=== PATIENT | male | born 1995 | race Hispanic/Latino ===

== ENCOUNTER 2024-05-09 17:50 | Emergency (ER) | payer SELFPAY ==
[~2024-05-09] VITALS: Ht 167.6 cm; Wt 106.6 kg
--- NOTE | 2024-05-09 18:14 | EKG ---
[facility] Test Date: 2024-05-09 Test Time: 18:12:15 Pat Name: KUN GONZALEZ Department: [facility] Room: Gender: M Operations Specialists: [id number] : 1995 Requested By: SUHAIL CARROLL Order Number: [id number] Reading MD: Liya Gonzales Measurements Intervals [place] Rate: 105 P: 36 [place]: 173 QRS: 29 QRSD: 102 T: 10 QT: 331 QTc: 438 Interpretive Statements Sinus tachycardia Consider inferior infarct ST elevation suggests acute pericarditis No previous ECG available for comparison Electronically Signed On 05-10-2024 08:20:50 TUBE LASER OPERATOR by Liya Gonzales Please click the below link to view image of tracing.
[2024-05-09 18:22] LABS: APPEARANCE,URINE CLEAR (CLEAR); BASOPHILS # (AUTO) 0.07 K/uL (0.00-0.20); BASOPHILS % (AUTO) 0.6 % (0.0-5.0); BILIRUBIN,URINE NEGATIVE (NEGATIVE); COLOR,URINE YELLOW (YELLOW); EOSINOPHILS % (AUTO) 2.4 % (0.0-8.0); GLUCOSE, URINE (UA) NEGATIVE (NEGATIVE); HEMATOCRIT 41.5 % (42-54); IMMATURE GRANULOCYTE ABSOLUTE 0.16 K/uL (0-1); KETONES,URINE NEGATIVE (NEGATIVE); LEUKOCYTE ESTERASE ,URINE NEGATIVE Leu/uL (NEGATIVE); LYMPHOCYTES # (AUTO) 2.1 K/uL (1.0-4.8); LYMPHOCYTES % (AUTO) 17.2 % (21.0-51.0); MEAN CORPUSCULAR HEMOGLOBIN 31.1 pg (27.0-33.0); MEAN CORPUSCULAR HGB CONC 35.2 g/dL (32.0-36.0); MEAN CORPUSCULAR VOLUME 88.3 fL (79-99); MONOCYTES # (AUTO) 0.8 K/uL (0.1-1.0); MONOCYTES % (AUTO) 6.1 % (3.0-13.0); NEUTROPHILS # (AUTO) 8.9 K/uL (1.8-7.7); NEUTROPHILS % (AUTO) 72.4 % (40.0-77.0); NITRATE,URINE NEGATIVE (NEGATIVE); OCCULT BLOOD,URINE NEGATIVE (NEGATIVE); PH,URINE 5.5 (5.0-8.0); PLATELET COUNT (AUTO) 222 K/uL (130-400); PROTEIN,URINE NEGATIVE (NEGATIVE); RED CELL DISTRIBUTION WIDTH 11.9 % (11.0-15.5); UROBILINOGEN,URINE 0.2 mg/dL (0.2-1.0); WHITE BLOOD COUNT (AUTO) 12.3 K/uL (4.8-10.8)
--- NOTE | 2024-05-09 18:22 | ERN ---
General Chief Complaint: Suicidal Ideation Stated Complaint: SI Time Seen by MD: 17:56 Time Seen by Midlevel: 17:57 Source: patient History of Present Illness Initial Comments 29-year-old male who presents to the ED by EMS due to suicide ideation. Per EMS patient verbalized suicidal ideation and auditory hallucinations telling him to hurt himself, and had a plan of hanging himself. During the interview patient denied any current suicide ideations but states he wants to go to behavioral because he is not feeling himself. Denies any pain or current symptoms. PMHx anxiety, depression, HTN, schizophrenia, ADHD Allergies: Coded Allergies: No Known Allergies (Unverified Allergy, Unknown, 05/09/24) Past Medical History Past Medical History: Anxiety, Depression, Hypertension, Schizophrenia, Other Medical History Other: ADHD Past Surgical History: None ROS Dictation Constitutional: Negative for fever,chills, and weight loss Eyes: Negative for injury, pain,redness, and discharge ENT: Negative for injury,pain or swelling Cardiovascular: Negative for chest pain, palpitations, and edema Respiratory: Negative for shortness of breath, cough, and wheezing, Abdomen/GI: Negative for abdominal pain, nausea, vomiting, diarrhea, and co nstipation Back: Negative for injury and pain : Negative for painful urination, bleeding or discharge MS/Extremity: Negative for injury and deformity Skin: Negative for rash, and discoloration Neuro: Negative for headache, weakness, numbness, tingling, and seizure Psych: Negative for suicide ideation, homicidal ideation, and hallucinations Physical Exam Physical Exam Dictation General: awake, alert, no acute distress Head/Face: Normocephalic, atraumatic Eyes: PERRL, EOMI, normal conjunctiva ENT: oral cavity clear, oral mucosa moist Neck: Trachea midline, supple, no nuchal rigidity Cardiovascular: RRR, normal S1/S2,, no JVD Respiratory: CTAB, no respiratory distress, No rales or wheezes Abdomen: Soft, non-tender, non-distended, no guarding or rebound. Skin: Warm, dry, normal turgor, no rash MS/Extremity: Pulses equal, no cyanosis, neurovascular intact, FROM Neuro: COAx4, GCS 15, normal gait Psych: Normal behavior, mood, and affect normal Results Laboratory and Microbiology Lab and Micro Result Laboratory Tests Test 05/09/24 18:10 White Blood Count 12.3 K/uL (4.8-10.8) H Red Blood Count 4.70 MIL/uL (4.50-6.20) Hemoglobin 14.6 g/dL (14.0-18.0) Hematocrit 41.5 % (42-54) L Mean Corpuscular Volume 88.3 fL (79-99) Mean Corpuscular Hemoglobin 31.1 pg (27.0-33.0) Mean Corpuscular Hemoglobin Concent 35.2 g/dL (32.0-36.0) Red Cell Distribution Width 11.9 % (11.0-15.5) Platelet Count 222 K/uL (130-400) Mean Platelet Volume 10.7 fL (7.5-10.5) H Immature Granulocyte % (Auto) 1.3 % (0-1) H Neutrophils (%) (Auto) 72.4 % (40.0-77.0) Lymphocytes (%) (Auto) 17.2 % (21.0-51.0) L Monocytes (%) (Auto) 6.1 % (3.0-13.0) Eosinophils (%) (Auto) 2.4 % (0.0-8.0) Basophils (%) (Auto) 0.6 % (0.0-5.0) Neutrophils # (Auto) 8.9 K/uL (1.8-7.7) H Lymphocytes # (Auto) 2.1 K/uL (1.0-4.8) Monocytes # (Auto) 0.8 K/uL (0.1-1.0) Eosinophils # (Auto) 0.30 K/uL (0.00-0.70) Basophils # (Auto) 0.07 K/uL (0.00-0.20) Absolute Immature Granulocyte (auto 0.16 K/uL (0-1) Nucleated Red Blood Cells 0.0 % (0.0-0.19) Urine Color YELLOW (YELLOW) Urine Appearance CLEAR (CLEAR) Urine pH 5.5 (5.0-8.0) Urine Specific [place] 1.033 (1.001-1.031) Urine Protein NEGATIVE mg/dL (NEGATIVE) Urine Glucose (UA) NEGATIVE mg/dL (NEGATIVE) Urine Ketones NEGATIVE mg/dL (NEGATIVE) Urine Occult Blood NEGATIVE (NEGATIVE) Urine Nitrate NEGATIVE (NEGATIVE) Urine Bilirubin NEGATIVE mg/dL (NEGATIVE) Urine Urobilinogen 0.2 mg/dL (0.2-1.0) Urine Leukocyte Esterase NEGATIVE Jonathan/uL Urine RBC 0-1 /HPF (0-1) Urine WBC 2-5 /HPF (0-1) H Urine Squamous Epithelial Cells RARE /HPF (0-2) Urine Bacteria None /HPF (None Seen) Sodium Level 140 mmol/L (136-145) Potassium Level 3.9 mmol/L (3.5-5.1) Chloride Level 103 mmol/L (101-111) Carbon Dioxide Level 25 mmol/L (21-32) Blood Urea Nitrogen 21 mg/dL (7-18) H Creatinine 1.0 mg/dL (0.5-1.3) Glomerular Filtration Rate Calc 104 mL/min (>90) Random Glucose 121 mg/dL (70-105) H Total Calcium 9.1 mg/dL (8.5-10.1) Total Creatine Kinase 147 U/L (21-232) Salicylates Level < 2.8 mg/dL (2.8-20.0) L Urine Opiates Screen NEGATIVE (NEGATIVE) Acetaminophen Level < 3 mcg/mL (10-29) L Urine Barbiturates Screen NEGATIVE (NEGATIVE) Urine Phencyclidine Screen NEGATIVE (NEGATIVE) Urine Amphetamines Screen NEGATIVE (NEGATIVE) Urine Benzodiazepines Screen NEGATIVE (NEGATIVE) Urine Cocaine Screen NEGATIVE (NEGATIVE) Urine Marijuana (THC) Screen NEGATIVE (NEGATIVE) Serum Alcohol < 3 mg/dL (0-10) Labs Reviewed?: Yes EKG/XRAY/US/CT/MRI EKG Comment Date: 05/09/24 Time: 18:12 Rate: 105 EKG interpretation: Sinus tachycardia, no STEMI Reviewed by ED Attending MDM MDM: Patient came in for auditory hallucinations telling him to hang himself. Patient was medically cleared and screened. Did not meet any criteria for inpatient psychiatric admission. We will discharge patient with safety plan provided by romeo. Differential diagnosis: Suicide ideation, depression, hallucinations Rationale: 29-year-old male who presents to the ED by EMS due to suicide ideation. Per EMS patient verbalized suicidal ideation and auditory hallucinations telling him to hurt himself, and had a plan of hanging himself. During the interview patient denied any current suicide ideations but states he wants to go to behavioral because he is not feeling himself. Denies any pain or current symptoms. PMHx anxiety, depression, HTN, schizophrenia, ADHD Labs obtained are nonspecific. Due to patient denying any current symptoms no further workup indicated. Patient is medically cleared for psych eval There are no social concerns with this patient. I independently interpreted the test that were performed, results were reviewed by me and considered findings on radiology if ordered. Medical management and examination interpretation discussions were had by me with other qualified healthcare professionals as indicated for the patient's care. ED Course Orders Procedure Category Date Status Time Cbc With Differential LAB 05/09/24 Complete 17:57 Basic Metabolic Panel LAB 05/09/24 Complete 17:57 Urinalysis LAB 05/09/24 Complete W/Microscopic 17:57 Drug Screen Urine LAB 05/09/24 Complete 17:57 Acetaminophen LAB 05/09/24 Complete 17:57 Salicylate LAB 05/09/24 Complete 17:57 Alcohol, Blood LAB 05/09/24 Complete 17:57 12 Lead Ekg Tracing- EKG 05/09/24 Complete Technical 17:57 Creatine Kinase, Total LAB 05/09/24 Complete 17:57 Vital Signs Date Time Temp Pulse Resp B/P (MAP) Pulse Ox O2 Delivery O2 Flow Rate FiO2 05/09/24 19:21 97.3 96 16 132/87 97 Room Air* 0 21 05/09/24 17:52 97.7 108 20 137/92 99 Room Air DX & DISP Disposition: Discharge Departure Impression: Primary Impression: Suicide ideation Additional Impression: Medical clearance for psychiatric admission Condition: Stable Additional Instructions: Follow plan of care/safety plan provided by screener. Return to the ER if you have any recurrent thoughts of suicide or homicidal behavior. Time of Disposition: 23:28 I have reviewed the case, and I agree with, Diagnosis and Plan I participated in the following activities of this patient's care: For this patient encounter, I reviewed the PA or DENTAL PRACTITIONER documentation, treatment plan, and medical decision making. I did not have [id number] time with this patient. I will sign as the reviewing DrIgnacio And agree with the treatment plan and disposition. SUHAIL CARROLL PA May 09, 2024 18:22 GERALD AMBROCIO DENTAL PRACTITIONER May 09, 2024 23:29
[2024-05-09 18:25] LABS: MUCUS,URINE RARE LPF (None Seen); RBC,URINE 0-1 /HPF (0-1); SQUAMOUS EPITHELIAL CELL,UR RARE /HPF (0-2)
[2024-05-09 18:30] LABS: AMPHET/METH SCREEN,URINE NEGATIVE (NEGATIVE); BARBITURATE SCREEN, URINE NEGATIVE (NEGATIVE); BENZODIAZEPINES SCREEN,URINE NEGATIVE (NEGATIVE); CANNABINOID SCREEN,URINE NEGATIVE (NEGATIVE); COCAINE SCREEN,URINE NEGATIVE (NEGATIVE); OPIATE SCREEN,URINE NEGATIVE (NEGATIVE); PHENCYCLIDINE SCREEN,URINE NEGATIVE (NEGATIVE)
[2024-05-09 18:34] LABS: CARBON DIOXIDE 25 mmol/L (21-32); CHLORIDE 103 mmol/L (101-111); GLOMERULAR FILTR. RATE CALC 104 mL/min (>90); GLUCOSE,RANDOM 121 mg/dL (70-105); POTASSIUM 3.9 mmol/L (3.5-5.1); SODIUM SERUM 140 mmol/L (136-145); UREA NITROGEN, BLOOD 21 mg/dL (7-18)
[2024-05-09 18:38] LABS: ALCOHOL, BLOOD < 3 mg/dL (0-10); CREATINE KINASE, TOTAL 147 U/L (21-232); SALICYLATE < 2.8 mg/dL (2.8-20.0)
[2024-05-09 18:39] LABS: ACETAMINOPHEN < 3 mcg/mL (10-29)
--- NOTE | 2024-05-09 19:07 | NUR ---
PATIENT STATES HE IS HUNGRY, PROVIDED SANDWICH, APPLESAUCE AND JUICE, WARM BLANKET PROVIDED
--- NOTE | 2024-05-09 19:13 | NUR ---
SPOKE WITH FLOWER AT [facility] TO INITIATE SCREENING
--- NOTE | 2024-05-09 21:30 | NUR ---
SCREENER AT BEDSIDE
--- NOTE | 2024-05-09 23:02 | NUR ---
PER SCREENER, PATIENT DOES NOT MEET CRITERIA FOR INPATIENT SERVICES, MAY BE DISCHARGED HOME WITH A SAFETY PLAN.
[2024-05-09 23:25] VITALS: BP 129/84; PULSE 87; RESP 16; TEMP 97.6; O2SAT 99
== END 2024-05-09 23:43 | disposition home or self-care (01) ==
LOC: EDH 17:50
DX: R45.851 Suicidal ideations (principal); F20.9 Schizophrenia, unspecified; I10 Essential (primary) hypertension; Z00.8 Encounter for other general examination
CPT/HCPCS: 99284; 82550; 80048; 80305; 85025; 36415; 93005; 81001; G0481

== ENCOUNTER 2024-05-10 05:42 | Emergency (ER) | payer SELFPAY ==
[~2024-05-10] VITALS: Ht 167.6 cm; Wt 106.6 kg
[2024-05-10] MEDS: FAMOTIDINE 20MG TAB PO ONE (05:57)
--- NOTE | 2024-05-10 05:59 | ERN ---
ED Note History of Present Illness Stated Complaint: ABDOMINAL PAIN X 30 MINUTES Chief Complaint: Abdominal Pain Time Seen by MD: 05:44 Dictation: This is a 29-year-old male who was in the emergency room at [facility] on 05/09 2024 for suicidal ideations and wanting to plan to hang himself. He was monitored extensively and medical clearance evaluation was done. Behavioral health team evaluated him did not deem a candidate for inpatient psychiatric hospitalization based on their evaluation, he returned to the emergency room with an hours stating that he had abdominal pain that started 30 minutes ago No nausea vomitings diarrhea hematemesis or melena. Nurses in the emergency room a indicated that for the hours that he was in the ER earlier he ate many sandwiches and drank lot of juices. He is homeless Temperature 99.3 pulse 96 respirations 16 blood pressure 143/95 pulse oximetry 96% PMHx anxiety, depression, HTN, schizophrenia, ADHD Allergies: Coded Allergies: No Known Allergies (Unverified Allergy, Unknown, 05/09/24) Past Medical History Past Medical History: Anxiety, Depression, Hypertension, Schizophrenia, Other Additional Past Medical Hx: ADHD Surgical History: None Family History: Negative Social History: Negative RN Note Reviewed/Agreed w/PFSH: Yes Review of System Dictation Constitutional: Negative for fever,chills, and weight loss Eyes: Negative for injury, pain,redness, and discharge ENT: Negative for injury,pain or swelling Cardiovascular: Negative for chest pain, palpitations, and edema Respiratory: Negative for shortness of breath, cough, and wheezing, Abdomen/GI: Positive for abdominal pain, denies nausea, vomiting, diarrhea, and constipation Back: Negative for injury and pain : Negative for injury, bleeding and discharge MS/Extremity: Negative for injury and deformity Skin: Negative for rash, and discoloration Neuro: Negative for headache, weakness, numbness, tingling, and seizure Psych: Negative for suicide ideation, homicidal ideation, and hallucinations Initial Vital Sign VS Vital Signs Date Time Temp Pulse Resp B/P (MAP) Pulse Ox O2 Delivery O2 Flow Rate FiO2 05/10/24 05:42 99.3 96 16 143/95 96 Room Air* 0 21 Physical Exam Dictation General: awake, alert, NAD morbidly obese male Head/Face: Normocephalic, atraumatic Eyes: PERRL, EOMI, vision at baseline ENT: oral cavity clear, TMs clear, no signs of infection Neck: Trachea midline, supple, no nuchal rigidity Cardiovascular: RRR, normal S1/S2, No MRGs, no JVD Respiratory: CTAB, no respiratory distress, No rales or wheezes Abdomen: Soft, non-tender, non-distended, normal bowel sounds, no guarding or rebound. Skin: Warm, dry, normal turgor, no rash MS/Extremity: Pulses equal, no cyanosis, neurovascular intact, FROM Neuro: COAx4, GCS 15, strength 5/5, CN 2-12 intact, normal cerebellar exam, normal gait, Psych: Normal behavior, mood, and affect normal Extremities-trace edema without any palpable cords, Homans sign is negative Results (Laboratory/Radiology) Labs Reviewed?: Yes ED Course ED Course Orders Procedure Category Date Status Time Famotidine 20mg Tab PHA 05/10/24 Complete (Pepcid 20mg Tab) 06:00 Current Medications Medications (Trade) Dose Ordered Sig/Rubia Route PRN Reason Start Time Stop Time Status Last Admin Dose Admin Famotidine (Pepcid 20mg Tab) 20 mg ONCE ONCE PO 05/10/24 06:00 05/10/24 06:01 DC 05/10/24 05:57 Vital Signs Date Time Temp Pulse Resp B/P (MAP) Pulse Ox O2 Delivery O2 Flow Rate FiO2 05/10/24 05:43 99.3 96 16 143/95 96 Room Air 0 05/10/24 05:42 99.3 96 16 143/95 96 Room Air* 0 21 We will administer medications according to the patient's complaint. Once the results are available, will review and personally interpreted the labs to rule out any acute life-threatening emergency the trach require immediate inter vention and treatment. I will then re-evaluate the patient after treatment and diagnostic exams have return to determine whether the patient requires any further testing, can safely be discharged home or need further admission to hospital for additional treatment and evaluation. Medical Decision Making MDM MDM: Differential diagnosis: Gastritis, esophagitis, peptic ulcer disease, constipation Rationale: Tests considered and ordered secondary to shared decision making include: Previous outside records reviewed: Old ER visits. Risk of complication and/or morbidity or mortality of patient management: None Medications-Per medication reconciliation Need for hospitalization: Patient does not meet criteria for hospitalization. Need for emergency major/minor surgery: No There are no social concerns with this patient. Prescription drug management Prescriptions will include symptomatic care Patient's prior external medical records from other ER visits were reviewed by me as indicated. Prior testing and results from previous visits were reviewed. Prior tests were taken into account with medical decision making and resource utilization, independent historian/historians were used to obtain complete medical history. I independently interpreted the test that were performed, results were reviewed by me and considered findings on radiology if ordered. Medical management and examination interpretation discussions were had by me with other qualified healthcare professionals as indicated for the patient's care. Problem List Problem List: (1) Gastritis (2) Nonspecific abdominal pain DX & DISP Disposition: Discharge Departure Impression: Primary Impression: Gastritis Additional Impression: Nonspecific abdominal pain Condition: Stable Additional Instructions: Patient and the caregiver have been informed of all the diagnostic tests and the imaging conducted during the today's visit to the emergency room and has verbalized understanding of the results I have personally reviewed and interpreted all diagnostic exams performed here in the ER today as well as the vital signs documented by the nursing staff. The patient is now being discharged to home and should follow up with the primary care physician or the specialist as directed by the ER staff. Follow-up with primary care provider in 1 to 2 days. Take medications as directed here in the emergency room. Okay to continue home medications unless otherwise discussed during your visit in the emergency room today. Return to your nearest emergency room if symptoms worsen or if there is no improvement. Call 911 if you need immediate assistance. Take Tylenol or Motrin [id number] as needed and if no contraindications are present. Increase oral hydration. A wound culture or urine culture was ordered here in the emergency room department please follow-up with primary care provider and advise them to get repeat ports from our facility. If you had any Melchor wrap/splints that were applied here, please do not remove them until you see your primary care or specialty. Referrals: NONE (PCP) ASHOK LEONARD MD May 10, 2024 05:59
[2024-05-10 07:48] VITALS: BP 132/89; PULSE 88; RESP 16; TEMP 98.8; O2SAT 97
== END 2024-05-10 08:08 | disposition home or self-care (01) ==
LOC: EDH 05:42
DX: K29.70 Gastritis, unspecified, without bleeding (principal); R10.9 Unspecified abdominal pain; F20.9 Schizophrenia, unspecified; I10 Essential (primary) hypertension; F41.9 Anxiety disorder, unspecified
CPT/HCPCS: 99283